=== PATIENT | male | born 1980 | race Caucasian/White ===

== ENCOUNTER 2019-12-01 00:34 | Emergency (ER) | payer MEDICAID ==
[~2019-12-01] VITALS: Ht 182.9 cm; Wt 100.0 kg
[2019-12-01] MEDS ORDERED: TETRACAINE 0.5% OPHTH SOLUTION 4ML BOTTLE. ONE (00:53)
[2019-12-01] MEDS ORDERED: TETRACAINE 0.5% OPHTH SOLUTION 4ML BOTTLE. OU ONE (01:00)
[2019-12-01 01:06] VITALS: BP 143/91
[2019-12-01] MEDS ORDERED: ACET1TAB33 PO (01:13)
--- NOTE | 2019-12-01 01:15 | PHYS DOC ---
Past Medical History Past Medical History: No Pertinent History Past Surgical History: No Surgical History Alcohol Use: None Drug Use: None General Adult EDM: Chief Complaint: EYE PROBLEMS HPI: HPI: Patient is a 39 year old year old male presents for evaluation of bilateral eye pain. 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 He states he has new mask. This evening patient started having bilateral eye burning with some drainage. Review of Systems: Review of Systems: Constitutional: Denies fever or chills. [] Eyes: Positive eye pain positive eye drainage Heart Score: Risk Factors: Risk Factors: DM, Current or recent (<one month) smoker, HTN, HLP, family history of CAD, obesity. Risk Scores: Score 0 - 3: 2.5% MACE over next 6 weeks - Discharge Home Score 4 - 6: 20.3% MACE over next 6 weeks - Admit for Clinical Observation Score 7 - 10: 72.7% MACE over next 6 weeks - Early Invasive Strategies Current Medications: Current Medications Medications (Trade) Dose Ordered Sig/Jacob Start Time Stop Time Status Last Admin Dose Admin Tetracaine HCl (Tetracaine) 40 drop STK-MED ONCE 12/01/19 00:53 12/01/19 00:53 DC Allergies: Allergies: Allergies Coded Allergies Type Severity Reaction Last Updated Verified No Known Drug Allergies 05/03/13 No Physical Exam: PE: Skin: warm, dry and intact. Head:: Normocephalic, atraumatic. Neck: Trachea midline. Eyes: EOMI, injected conjunctiva, tearing CARDIOVASCULAR: Regular rate and rhythm RESPIRATORY: No respiratory distress Back: Full range of motion. MUSCULOSKELETAL: Full range of motion of bilateral upper and lower extremities. GASTROINTESTINAL: Abdomen soft without rebound or guarding. NEUROLOGICAL: Alert and noted to person, place and time. No neurological deficits observed Psychiatric: Cooperative. Normal judgment EKG: EKG: [] Radiology/Procedures: Radiology/Procedures: [] Course & Med Decision Making: Course & Med Decision Making Pertinent Labs and Imaging studies reviewed. (See chart for details) [] Tetracaine placed in both eyes. Patient's pain improved. Patient to be discharged home with Tylenol 3 and Cipro opht. Dragon Disclaimer: Grey Disclaimer: This electronic medical record was generated, in whole or in part, using a voice recognition dictation system. Departure Departure Impression: Primary Impression: Welders' flash Additional Impression: Welders' keratitis of both eyes Disposition: HOME, SELF-CARE Referrals: NO PCP (PCP) Patient Instructions: Eye - Ultraviolet Keratitis Scripts Acetaminophen With Codeine (ACETAMINOPHEN-COD #3 TABLET) 1 Each Tablet 1 TAB PO PRN Q6HRS PRN for PAIN, #20 TAB Prov: SAMANTHA BEATTY DO 12/01/19 Justicifation of Admission Dx: Justifications for Admission: Justification of Admission Dx: N/A SAMANTHA BEATTY DO Dec 01, 2019 01:15
== END 2019-12-01 01:21 | disposition home or self-care (01) ==
LOC: ER 00:34
DX: H16.133 Photokeratitis, bilateral (principal)
CPT/HCPCS: 99283